=== PATIENT | male | born 1955 | race Caucasian/White ===

== ENCOUNTER 2020-06-09 07:41 | Outpatient (CLI) | payer BC ==
--- NOTE | 2020-06-09 08:19 | ULT ---
GALLBLADDER ULTRASOUND: HISTORY:Transaminitis FINDINGS: The liver demonstrates increased echogenicity without focal mass or intrahepatic biliary ductal dilat ation. No gallstones, gallbladder wall thickening or pericholecystic fluid are seen. The right kidney and visualized portions of the pancreas are normal. The common duct [id number] in diameter. No free fluid is seen in the Aytes's pouch. IMPRESSION: 1. Fatty liver 2. No evidence of cholelithiasis
== END 2020-06-09 07:42 | disposition home or self-care (01) ==
LOC: BICULT 07:41
PROVIDERS: ATTEND Internal Medicine
DX: R74.01 Elevation of levels of liver transaminase levels (principal); K76.0 Fatty (change of) liver, not elsewhere classified
CPT/HCPCS: 76705

== ENCOUNTER 2020-11-04 11:48 | Outpatient (CLI) | payer BC ==
--- NOTE | 2020-11-04 15:00 | PET ---
Nuclear medicine FDG PET/CT: (Positron emission tomography and computed tomography) DATE: 11/04/2020 HISTORY: 65-year-old male with pancreatic cancer and liver metastases. Initial staging. COMPARISON: none TECHNIQUE: IV injection of F-18 fluorodeoxyglucose (FDG) dose: 11.8 mCi. PET scan and attenuation correction CT performed from skull base to proximal thighs. FINDINGS: SUV (standard uptake values) numbers given are maximum SUVs. QCLR used. The mass at the tail of the pancreas is hypermetabolic. SUV 7.4. The left adrenal nodule is hypermetabolic, with SUV 3.0. Right retrocaval node posterior to right renal vein SUV 2.9. The other upper retroperitoneal nodes, including left anterior para-aortic nodes have SUVs of 1.9 and 2.3, below threshold. Of the several small liver lesions in the lateral periphery of the right lobe, the one with greatest uptake has SUV of 4.5. Multiple hypermetabolic foci in bilateral ribs : Of these, the greatest uptake is at the lateral aspect of the right sixth rib with SUV 6.8. T4 vertebral body SUV 4.2. T5 vertebral body and left pedicle SUV 8. Right side of L2 vertebral body SUV 3.8. Right ilium lateral to SI joint SUV 8.8. Left anterior iliac wing SUV 4.6. Left supra-acetabular ilium SUV 5.1. Right ischial tuberosity SUV 4.5. No evidence of metastases within the thoracic cavity, neck, or pelvic cavity. IMPRESSION: 1) hypermetabolic mass at pancreatic tail: Evidence for primary pancreatic cancer. 2) evidence for numerous skeletal metastases. 3) several hepatic metastases. 4) left adrenal metastasis. 5) upper retroperitoneal metastases.
== END 2020-11-04 11:49 | disposition home or self-care (01) ==
LOC: PET 11:48
PROVIDERS: ATTEND Internal Medicine Hematology & Oncology
DX: C25.0 Malignant neoplasm of head of pancreas (principal); C79.51 Secondary malignant neoplasm of bone; C78.7 Secondary malignant neoplasm of liver and intrahepatic bile duct; C78.6 Secondary malignant neoplasm of retroperitoneum and peritoneum; C79.72 Secondary malignant neoplasm of left adrenal gland
CPT/HCPCS: 78815; A9552

== ENCOUNTER 2020-11-06 08:46 | Day surgery (SDC) | payer BC ==
[2020-11-06 09:55] LABS: PTT 29.6 sec (22.9-36.1); Prothrombin Time 13.6 sec (12.0-14.7)
[2020-11-06 10:33] VITALS: BP 129/81; TEMP 98.3
== END 2020-11-06 12:15 | disposition home or self-care (01) ==
LOC: CT 08:46
PROVIDERS: ATTEND Internal Medicine Hematology & Oncology
PROC: 0QB23ZX Excision of Right Pelvic Bone, Percutaneous Approach, Diagnostic (ICD-10-PCS; principal; 2020-11-06)
DX: C25.0 Malignant neoplasm of head of pancreas (principal); C79.51 Secondary malignant neoplasm of bone; E11.9 Type 2 diabetes mellitus without complications; I10 Essential (primary) hypertension; I48.91 Unspecified atrial fibrillation; K21.9 Gastro-esophageal reflux disease without esophagitis; K59.00 Constipation, unspecified; E78.5 Hyperlipidemia, unspecified; L40.50 Arthropathic psoriasis, unspecified; Z79.82 Long term (current) use of aspirin; Z79.84 Long term (current) use of oral hypoglycemic drugs; Z79.899 Other long term (current) drug therapy; Z87.891 Personal history of nicotine dependence; Z88.1 Allergy status to other antibiotic agents
CPT/HCPCS: 20225; 77012; 85610; 85730; 88307; 88313; 88333; 88341; 88342

== ENCOUNTER 2020-11-17 13:11 | Inpatient (IN) | payer BC ==
[2020-11-17] MEDS ORDERED: Iopamidol-370 76% 500 ML 1 ML ONE (13:24)
[2020-11-17] MEDS ORDERED: Fentanyl 100 MCG/2 ML VIAL ONE ×3 (13:46→15:21)
[2020-11-17] MEDS ORDERED: Heparin 10,000 UNITS/ 10 ML VIAL ONE (14:33)
[2020-11-17] MEDS ORDERED: Heparin 25,000 units/D5W 500 ML ONE (14:33)
[2020-11-17 14:46] LABS: #Eosinphils 0.1 thou/uL (0.0-0.7); #Lymphocytes 0.9 thou/uL (1.20-3.40); #Monocytes 0.8 thou/uL (0.11-0.59); #Neutrophils 11.3 thou/uL (1.40-6.50); %Basophils 0.2 % (0.0-1.0); %Eosinophils 0.7 % (0.0-10.0); %Lymphocytes 6.9 % (21.0-51.0); %Monocytes 6.1 % (0.0-10.0); Hemoglobin 13.4 g/dL (14.0-18.0); Mean Corpuscular HGB CONC 32.4 g/dL (32.0-36.0); Mean Corpuscular Hemoglobin 29.2 pg (27.0-31.0); Mean Corpuscular Volume 90.2 fL (78.0-98.0); Mean Platelet Volume 6.8 fL (7.4-10.4); Platelet Count 181 thou/uL (130-400); RBC Distribution Width 12.2 % (11.5-14.5); Red Blood Cell (RBC) Count 4.58 mill/uL (4.70-6.10); White Blood Cell (WBC) Count 13.2 thou/uL (4.8-10.8)
[2020-11-17 15:06] LABS: ALT (SGPT) 42 U/L (8-55); AST (SGOT) 57 U/L (5-34); Albumin 3.6 g/dL (3.4-4.8); Alkaline Phosphatase 103 U/L (40-110); Anion Gap 20 mmol/L (10-20); BUN (Urea Nitrogen) 13 mg/dL (8.4-25.7); Bilirubin, Total 0.7 mg/dL (0.2-1.2); Calc. Creatinine Clearance 0 mL/min (70-130); Carbon Dioxide 21 mmol/L (23-31); Chloride 95 mmol/L (98-107); Globulin 3.6 g/dL (2.4-3.5); Glucose 231 mg/dL (80-115); Potassium 4.5 mmol/L (3.5-5.1); Protein, Total 7.2 g/dL (5.8-8.1); Sodium 131 mmol/L (136-145)
[2020-11-17 15:35] LABS: INR-International Normal Ratio 1.4; Prothrombin Time 17.7 sec (12.0-14.7)
[2020-11-17 15:42] LABS: PTT 242.7 sec (22.9-36.1)
[2020-11-17 15:52] LABS: CKMB 0.7 ng/mL (0-6.6)
[2020-11-17] MEDS ORDERED: Electrolyte Replacement Protocol FS SCH (15:58)
[2020-11-17] MEDS ORDERED: Heparin 10,000 UNITS/ 10 ML VIAL SLOW IVP SCH (16:00)
[2020-11-17 18:12] LABS: Troponin I 0.033 ng/mL (< 0.028)
[2020-11-17 18:22] LABS: SARS-CoV-2 NAA Rapid Test Not Detected (NotDetected)
[2020-11-17] MEDS ORDERED: Insulin Regular 300 UNITS/3 ML VIAL SC PRN (19:04)
[2020-11-17] MEDS ORDERED: Dextrose 5% in Water 1,000 ML IV PRN (19:04)
[2020-11-17] MEDS ORDERED: Dextrose 50% Abboject 50 ML SYRINGE SLOW IVP PRN (19:04)
[2020-11-17] MEDS ORDERED: Calcium Carbonate 500 MG ChewTAB PO PRN (19:06)
[2020-11-17] MEDS ORDERED: Dronedarone HCl 400 MG TAB PO SCH (19:15)
[2020-11-17] MEDS ORDERED: Magnesium 2 GM/50 ML 2 GM in Premix Bag 1 BAG IVPB SCH (19:15)
[2020-11-17] MEDS: Morphine 2 MG/ML VIAL SLOW IVP PRN (19:55)
[2020-11-17] MEDS: Morphine ER 15 MG TAB PO SCH (19:59)
[2020-11-17] MEDS: Sodium Chloride 0.9% 1,000 ML IV SCH (20:30)
[2020-11-17] MEDS: HYDROcodone/Acetaminophen 10/325 mg Tablet PO PRN (22:14)
[2020-11-17] MEDS: Senokot S 8.6-50 MG TAB PO SCH (22:21)
[2020-11-17] MEDS: Metoprolol Tartrate 25 MG TAB PO SCH (22:23)
[2020-11-18] MEDS: HYDROcodone/Acetaminophen 10/325 mg Tablet PO PRN ×4 (02:19→22:18)
[2020-11-18] MEDS: Heparin 25,000 units/D5W 500 ML IVPB SCH ×2 (02:21→15:24)
[2020-11-18] MEDS: Sodium Chloride 0.9% 1,000 ML IV SCH ×3 (02:22→20:35)
[2020-11-18 03:55] LABS: #Eosinphils 0.1 thou/uL (0.0-0.7); #Lymphocytes 1.5 thou/uL (1.20-3.40); #Monocytes 0.9 thou/uL (0.11-0.59); %Basophils 0.3 % (0.0-1.0); %Lymphocytes 13.3 % (21.0-51.0); %Monocytes 7.7 % (0.0-10.0); %Neutrophils 77.7 % (42.0-75.0); Hemoglobin 12.3 g/dL (14.0-18.0); Mean Corpuscular Hemoglobin 30.4 pg (27.0-31.0); Mean Corpuscular Volume 89.5 fL (78.0-98.0); Platelet Count 160 thou/uL (130-400); Red Blood Cell (RBC) Count 4.06 mill/uL (4.70-6.10); White Blood Cell (WBC) Count 11.6 thou/uL (4.8-10.8)
[2020-11-18 04:17] LABS: Anion Gap 15 mmol/L (10-20); BUN (Urea Nitrogen) 8 mg/dL (8.4-25.7); Calc. Creatinine Clearance 160 mL/min (70-130); Calcium 8.6 mg/dL (7.8-10.44); Carbon Dioxide 23 mmol/L (23-31); Chloride 99 mmol/L (98-107); Glucose 213 mg/dL (80-115); Potassium 3.7 mmol/L (3.5-5.1); Sodium 133 mmol/L (136-145)
[2020-11-18] MEDS: Insulin Regular 300 UNITS/3 ML VIAL SC PRN ×4 (04:35→22:18)
[2020-11-18] MEDS: Dronedarone HCl 400 MG TAB PO SCH ×2 (07:58→16:36)
[2020-11-18] MEDS: Senokot S 8.6-50 MG TAB PO SCH ×2 (08:34→20:25)
[2020-11-18] MEDS: Morphine ER 15 MG TAB PO SCH ×2 (08:34→20:25)
[2020-11-18] MEDS: Metoprolol Tartrate 25 MG TAB PO SCH ×2 (08:35→20:27)
[2020-11-18] MEDS: Pantoprazole 40 MG VIAL IVP SCH (08:35)
[2020-11-18] MEDS: Aspirin 81 mg Enteric Coated Tablet PO SCH (08:35)
[2020-11-18] MEDS ORDERED: FLU VACC QS2020-21(6MOS UP)/PF 60 MCG/0.5 ML SYRINGE IM ONE (09:00)
[2020-11-18] MEDS ORDERED: Prevnar 13-Val Conj/PF 0.5 ML SYRINGE IM ONE (09:00)
[2020-11-18] MEDS: Morphine 2 MG/ML VIAL SLOW IVP PRN (10:11)
[2020-11-18] MEDS ORDERED: Polyethylene Glycol 3350 17 GM Packet PO PRN (11:04)
[2020-11-18] MEDS: fentaNYL 50 mcg/hour Patch TD SCH (11:39)
[2020-11-18] MEDS: Warfarin Sodium 5 MG TAB PO SCH (16:36)
[2020-11-19] MEDS: HYDROcodone/Acetaminophen 10/325 mg Tablet PO PRN ×2 (02:41→06:33)
[2020-11-19] MEDS: Heparin 25,000 units/D5W 500 ML IVPB SCH ×2 (02:58→14:31)
[2020-11-19 03:57] LABS: #Eosinphils 0.2 thou/uL (0.0-0.7); #Lymphocytes 1.2 thou/uL (1.20-3.40); #Monocytes 0.9 thou/uL (0.11-0.59); #Neutrophils 7.5 thou/uL (1.40-6.50); %Basophils 0.3 % (0.0-1.0); %Eosinophils 2.2 % (0.0-10.0); %Lymphocytes 12.2 % (21.0-51.0); %Monocytes 8.9 % (0.0-10.0); %Neutrophils 76.5 % (42.0-75.0); Hemoglobin 12.3 g/dL (14.0-18.0); Mean Corpuscular HGB CONC 33.4 g/dL (32.0-36.0); Mean Corpuscular Hemoglobin 30.1 pg (27.0-31.0); Mean Corpuscular Volume 90.1 fL (78.0-98.0); Mean Platelet Volume 6.9 fL (7.4-10.4); Platelet Count 175 thou/uL (130-400); RBC Distribution Width 11.9 % (11.5-14.5); Red Blood Cell (RBC) Count 4.09 mill/uL (4.70-6.10); White Blood Cell (WBC) Count 9.8 thou/uL (4.8-10.8)
[2020-11-19 04:00] LABS: INR-International Normal Ratio 1.1; Prothrombin Time 14.8 sec (12.0-14.7)
[2020-11-19 04:01] LABS: PTT 67.9 sec (22.9-36.1)
[2020-11-19 04:19] LABS: Anion Gap 16 mmol/L (10-20); BUN (Urea Nitrogen) 7 mg/dL (8.4-25.7); Calc. Creatinine Clearance 155 mL/min (70-130); Calcium 8.5 mg/dL (7.8-10.44); Carbon Dioxide 20 mmol/L (23-31); Chloride 99 mmol/L (98-107); Glucose 191 mg/dL (80-115); Potassium 4.4 mmol/L (3.5-5.1); Sodium 131 mmol/L (136-145)
[2020-11-19 04:23] LABS: Troponin I 0.014 ng/mL (< 0.028)
[2020-11-19] MEDS: Insulin Regular 300 UNITS/3 ML VIAL SC PRN ×3 (06:41→15:52)
[2020-11-19] MEDS: Dronedarone HCl 400 MG TAB PO SCH ×2 (07:43→16:54)
[2020-11-19] MEDS: Rosuvastatin 10 MG TAB PO SCH (07:52)
[2020-11-19] MEDS: Metoprolol Tartrate 25 MG TAB PO SCH ×2 (07:52→21:50)
[2020-11-19] MEDS: Senokot S 8.6-50 MG TAB PO SCH ×2 (07:52→21:49)
[2020-11-19] MEDS: Aspirin 81 mg Enteric Coated Tablet PO SCH (07:53)
[2020-11-19] MEDS: Pantoprazole 40 MG VIAL IVP SCH (07:53)
[2020-11-19] MEDS: Sodium Chloride 0.9% 1,000 ML IV SCH (07:55)
[2020-11-19] MEDS: Morphine ER 15 MG TAB PO SCH ×2 (08:29→22:08)
[2020-11-19] MEDS ORDERED: Morphine 2 MG/ML VIAL SLOW IVP PRN (09:21)
[2020-11-19] MEDS: metFORMIN 850 MG TAB PO SCH ×2 (14:32→21:44)
[2020-11-19] MEDS: Warfarin Sodium 5 MG TAB PO SCH (16:54)
[2020-11-19] MEDS ORDERED: Diltiazem 125 MG in Sodium Chloride 0.9% 100 ML IVPB SCH (18:00)
[2020-11-19] MEDS ORDERED: Digoxin 0.5 MG/2 ML AMP SLOW IVP SCH (18:00)
[2020-11-19] MEDS: Enoxaparin Sodium 100 MG/ML SYRINGE SC SCH (21:50)
[2020-11-20 04:02] LABS: #Basophils 0.1 thou/uL (0.0-0.2); #Eosinphils 0.2 thou/uL (0.0-0.7); #Lymphocytes 1.3 thou/uL (1.20-3.40); #Monocytes 0.9 thou/uL (0.11-0.59); #Neutrophils 7.9 thou/uL (1.40-6.50); %Basophils 0.5 % (0.0-1.0); %Eosinophils 2.2 % (0.0-10.0); %Lymphocytes 12.8 % (21.0-51.0); %Monocytes 8.6 % (0.0-10.0); %Neutrophils 75.8 % (42.0-75.0); Hemoglobin 12.9 g/dL (14.0-18.0); Mean Corpuscular HGB CONC 33.7 g/dL (32.0-36.0); Mean Corpuscular Hemoglobin 30.4 pg (27.0-31.0); Mean Platelet Volume 6.9 fL (7.4-10.4); Platelet Count 161 thou/uL (130-400); Red Blood Cell (RBC) Count 4.25 mill/uL (4.70-6.10); White Blood Cell (WBC) Count 10.4 thou/uL (4.8-10.8)
[2020-11-20 04:33] LABS: Anion Gap 16 mmol/L (10-20); BUN (Urea Nitrogen) 7 mg/dL (8.4-25.7); Calc. Creatinine Clearance 173 mL/min (70-130); Calcium 8.9 mg/dL (7.8-10.44); Carbon Dioxide 18 mmol/L (23-31); Chloride 99 mmol/L (98-107); Glucose 157 mg/dL (80-115); Potassium 4.2 mmol/L (3.5-5.1); Sodium 129 mmol/L (136-145)
[2020-11-20] MEDS: Dronedarone HCl 400 MG TAB PO SCH ×2 (07:47→17:19)
[2020-11-20 08:17] LABS: INR-International Normal Ratio 1.2; Prothrombin Time 15.6 sec (12.0-14.7)
[2020-11-20] MEDS: Rosuvastatin 10 MG TAB PO SCH (08:32)
[2020-11-20] MEDS: Senokot S 8.6-50 MG TAB PO SCH ×2 (08:32→20:22)
[2020-11-20] MEDS: Aspirin 81 mg Enteric Coated Tablet PO SCH (08:32)
[2020-11-20] MEDS: Morphine ER 15 MG TAB PO SCH ×2 (08:32→20:23)
[2020-11-20] MEDS: Enoxaparin Sodium 100 MG/ML SYRINGE SC SCH ×2 (08:33→20:21)
[2020-11-20] MEDS: Metoprolol Tartrate 25 MG TAB PO SCH ×2 (08:33→20:22)
[2020-11-20] MEDS: metFORMIN 850 MG TAB PO SCH ×3 (08:34→20:22)
[2020-11-20] MEDS: Insulin Regular 300 UNITS/3 ML VIAL SC PRN (11:51)
[2020-11-20] MEDS: HYDROcodone/Acetaminophen 10/325 mg Tablet PO PRN ×2 (15:22→22:11)
[2020-11-20] MEDS: Warfarin Sodium 5 MG TAB PO SCH (17:19)
[2020-11-21 04:52] LABS: #Basophils 0.1 thou/uL (0.0-0.2); #Eosinphils 0.2 thou/uL (0.0-0.7); #Lymphocytes 1.1 thou/uL (1.20-3.40); #Monocytes 0.8 thou/uL (0.11-0.59); #Neutrophils 6.2 thou/uL (1.40-6.50); %Basophils 0.6 % (0.0-1.0); %Eosinophils 2.8 % (0.0-10.0); %Lymphocytes 13.5 % (21.0-51.0); Mean Corpuscular HGB CONC 32.6 g/dL (32.0-36.0); Mean Corpuscular Volume 88.8 fL (78.0-98.0); Mean Platelet Volume 6.7 fL (7.4-10.4); Platelet Count 203 thou/uL (130-400); Red Blood Cell (RBC) Count 4.15 mill/uL (4.70-6.10); White Blood Cell (WBC) Count 8.4 thou/uL (4.8-10.8)
[2020-11-21 04:54] LABS: INR-International Normal Ratio 1.3; Prothrombin Time 16.6 sec (12.0-14.7)
[2020-11-21 05:13] LABS: Anion Gap 14 mmol/L (10-20); BUN (Urea Nitrogen) 10 mg/dL (8.4-25.7); Calc. Creatinine Clearance 163 mL/min (70-130); Calcium 9.2 mg/dL (7.8-10.44); Carbon Dioxide 26 mmol/L (23-31); Chloride 96 mmol/L (98-107); Glucose 152 mg/dL (80-115); Potassium 4.1 mmol/L (3.5-5.1); Sodium 132 mmol/L (136-145)
[2020-11-21] MEDS ORDERED: Warfarin Sodium 5 MG TAB PO SCH (09:16)
[2020-11-21] MEDS: Morphine ER 15 MG TAB PO SCH ×2 (09:46→20:50)
[2020-11-21] MEDS: Enoxaparin Sodium 100 MG/ML SYRINGE SC SCH ×2 (09:46→20:50)
[2020-11-21] MEDS: Senokot S 8.6-50 MG TAB PO SCH ×2 (09:47→20:51)
[2020-11-21] MEDS: metFORMIN 850 MG TAB PO SCH ×3 (09:47→20:51)
[2020-11-21] MEDS: Dronedarone HCl 400 MG TAB PO SCH ×2 (09:47→17:39)
[2020-11-21] MEDS: Aspirin 81 mg Enteric Coated Tablet PO SCH (09:48)
[2020-11-21] MEDS: Metoprolol Tartrate 25 MG TAB PO SCH ×2 (09:48→20:51)
[2020-11-21] MEDS: Rosuvastatin 10 MG TAB PO SCH (09:51)
[2020-11-21] MEDS ORDERED: Zolpidem Tartrate 5 MG TAB PO PRN (09:58)
[2020-11-21] MEDS: fentaNYL 50 mcg/hour Patch TD SCH (11:51)
[2020-11-21] MEDS: HYDROcodone/Acetaminophen 10/325 mg Tablet PO PRN ×2 (13:41→18:03)
[2020-11-21] MEDS ORDERED: Warfarin Sodium 7.5 MG TAB PO SCH (17:00)
[2020-11-22] MEDS: HYDROcodone/Acetaminophen 10/325 mg Tablet PO PRN ×2 (01:31→10:51)
[2020-11-22 05:17] LABS: #Basophils 0.1 thou/uL (0.0-0.2); #Eosinphils 0.2 thou/uL (0.0-0.7); #Lymphocytes 1.1 thou/uL (1.20-3.40); #Monocytes 0.7 thou/uL (0.11-0.59); #Neutrophils 6.1 thou/uL (1.40-6.50); %Basophils 0.7 % (0.0-1.0); %Eosinophils 2.5 % (0.0-10.0); %Lymphocytes 13.2 % (21.0-51.0); %Monocytes 8.7 % (0.0-10.0); %Neutrophils 74.9 % (42.0-75.0); Hemoglobin 11.7 g/dL (14.0-18.0); Mean Corpuscular HGB CONC 33.6 g/dL (32.0-36.0); Mean Corpuscular Hemoglobin 29.8 pg (27.0-31.0); Mean Corpuscular Volume 88.6 fL (78.0-98.0); Mean Platelet Volume 7.1 fL (7.4-10.4); Platelet Count 214 thou/uL (130-400); Red Blood Cell (RBC) Count 3.92 mill/uL (4.70-6.10); White Blood Cell (WBC) Count 8.2 thou/uL (4.8-10.8)
[2020-11-22 05:21] LABS: INR-International Normal Ratio 1.5; Prothrombin Time 18.8 sec (12.0-14.7)
[2020-11-22 05:39] LABS: Anion Gap 15 mmol/L (10-20); BUN (Urea Nitrogen) 8 mg/dL (8.4-25.7); Calc. Creatinine Clearance 161 mL/min (70-130); Calcium 9.1 mg/dL (7.8-10.44); Carbon Dioxide 24 mmol/L (23-31); Chloride 95 mmol/L (98-107); Glucose 146 mg/dL (80-115); Sodium 130 mmol/L (136-145)
[2020-11-22] MEDS: Metoprolol Tartrate 25 MG TAB PO SCH ×2 (09:15→21:02)
[2020-11-22] MEDS: Enoxaparin Sodium 100 MG/ML SYRINGE SC SCH (09:15)
[2020-11-22] MEDS: Aspirin 81 mg Enteric Coated Tablet PO SCH (09:15)
[2020-11-22] MEDS: metFORMIN 850 MG TAB PO SCH ×3 (09:15→21:04)
[2020-11-22] MEDS: Dronedarone HCl 400 MG TAB PO SCH ×2 (09:15→17:14)
[2020-11-22] MEDS: Morphine ER 15 MG TAB PO SCH ×2 (09:16→21:03)
[2020-11-22] MEDS: Rosuvastatin 10 MG TAB PO SCH (09:18)
[2020-11-22] MEDS: Senokot S 8.6-50 MG TAB PO SCH ×2 (09:18→21:02)
[2020-11-22 10:23] VITALS: BMI 29.8
[2020-11-22] MEDS: Insulin Regular 300 UNITS/3 ML VIAL SC PRN (10:52)
[2020-11-22] MEDS: Apixaban 5 MG TAB PO SCH (21:04)
[2020-11-23 04:57] LABS: #Eosinphils 0.2 thou/uL (0.0-0.7); #Lymphocytes 0.9 thou/uL (1.20-3.40); #Monocytes 0.9 thou/uL (0.11-0.59); #Neutrophils 7.6 thou/uL (1.40-6.50); %Basophils 0.2 % (0.0-1.0); %Eosinophils 2.5 % (0.0-10.0); %Lymphocytes 9.6 % (21.0-51.0); %Monocytes 9.4 % (0.0-10.0); %Neutrophils 78.3 % (42.0-75.0); Mean Corpuscular HGB CONC 34.3 g/dL (32.0-36.0); Mean Corpuscular Hemoglobin 30.6 pg (27.0-31.0); Mean Corpuscular Volume 89.1 fL (78.0-98.0); Mean Platelet Volume 6.9 fL (7.4-10.4); Platelet Count 232 thou/uL (130-400); RBC Distribution Width 11.9 % (11.5-14.5); Red Blood Cell (RBC) Count 3.91 mill/uL (4.70-6.10); White Blood Cell (WBC) Count 9.7 thou/uL (4.8-10.8)
[2020-11-23 05:23] LABS: Anion Gap 16 mmol/L (10-20); BUN (Urea Nitrogen) 8 mg/dL (8.4-25.7); Calc. Creatinine Clearance 153 mL/min (70-130); Carbon Dioxide 25 mmol/L (23-31); Chloride 95 mmol/L (98-107); Glucose 163 mg/dL (80-115); Potassium 3.5 mmol/L (3.5-5.1); Sodium 132 mmol/L (136-145)
[2020-11-23] MEDS: HYDROcodone/Acetaminophen 10/325 mg Tablet PO PRN ×2 (05:45→17:25)
[2020-11-23] MEDS: Insulin Regular 300 UNITS/3 ML VIAL SC PRN ×3 (05:54→17:54)
[2020-11-23] MEDS ORDERED: Potassium Chloride 20 MEQ TAB PO SCH (06:30)
[2020-11-23] MEDS: Apixaban 5 MG TAB PO SCH ×2 (08:03→21:08)
[2020-11-23] MEDS: Dronedarone HCl 400 MG TAB PO SCH ×2 (08:03→16:35)
[2020-11-23] MEDS: metFORMIN 850 MG TAB PO SCH ×3 (08:04→21:09)
[2020-11-23] MEDS: Metoprolol Tartrate 25 MG TAB PO SCH ×2 (08:04→21:08)
[2020-11-23] MEDS: Aspirin 81 mg Enteric Coated Tablet PO SCH (08:04)
[2020-11-23] MEDS: Rosuvastatin 10 MG TAB PO SCH (08:05)
[2020-11-23] MEDS: Morphine ER 15 MG TAB PO SCH ×2 (08:05→21:10)
[2020-11-23] MEDS: Senokot S 8.6-50 MG TAB PO SCH ×2 (08:06→21:09)
[2020-11-23] MEDS ORDERED: Melatonin 3 MG TAB PO PRN (11:42)
[2020-11-24] MEDS: HYDROcodone/Acetaminophen 10/325 mg Tablet PO PRN ×4 (00:37→17:32)
[2020-11-24 04:36] LABS: #Basophils 0.1 thou/uL (0.0-0.2); #Eosinphils 0.3 thou/uL (0.0-0.7); #Lymphocytes 1.1 thou/uL (1.20-3.40); #Monocytes 0.9 thou/uL (0.11-0.59); #Neutrophils 7.1 thou/uL (1.40-6.50); %Basophils 0.7 % (0.0-1.0); %Eosinophils 2.7 % (0.0-10.0); %Lymphocytes 11.5 % (21.0-51.0); %Monocytes 9.7 % (0.0-10.0); %Neutrophils 75.4 % (42.0-75.0); Hemoglobin 11.9 g/dL (14.0-18.0); Mean Corpuscular HGB CONC 32.5 g/dL (32.0-36.0); Mean Corpuscular Hemoglobin 28.7 pg (27.0-31.0); Mean Corpuscular Volume 88.5 fL (78.0-98.0); Mean Platelet Volume 6.6 fL (7.4-10.4); Platelet Count 223 thou/uL (130-400); RBC Distribution Width 12.1 % (11.5-14.5); Red Blood Cell (RBC) Count 4.16 mill/uL (4.70-6.10); White Blood Cell (WBC) Count 9.4 thou/uL (4.8-10.8)
[2020-11-24 05:02] LABS: Anion Gap 13 mmol/L (10-20); BUN (Urea Nitrogen) 8 mg/dL (8.4-25.7); Calc. Creatinine Clearance 160 mL/min (70-130); Carbon Dioxide 26 mmol/L (23-31); Chloride 96 mmol/L (98-107); Glucose 159 mg/dL (80-115); Potassium 3.6 mmol/L (3.5-5.1); Sodium 131 mmol/L (136-145)
[2020-11-24] MEDS: Apixaban 5 MG TAB PO SCH ×2 (07:57→21:29)
[2020-11-24] MEDS: Metoprolol Tartrate 25 MG TAB PO SCH ×2 (07:57→21:29)
[2020-11-24] MEDS: Dronedarone HCl 400 MG TAB PO SCH ×2 (07:57→16:24)
[2020-11-24] MEDS: Aspirin 81 mg Enteric Coated Tablet PO SCH (07:57)
[2020-11-24] MEDS: metFORMIN 850 MG TAB PO SCH ×3 (07:57→21:29)
[2020-11-24] MEDS: Rosuvastatin 10 MG TAB PO SCH (07:58)
[2020-11-24] MEDS: Morphine ER 15 MG TAB PO SCH ×2 (07:58→21:29)
[2020-11-24] MEDS: Senokot S 8.6-50 MG TAB PO SCH ×2 (07:59→21:29)
[2020-11-24] MEDS: Insulin Regular 300 UNITS/3 ML VIAL SC PRN (10:48)
[2020-11-24] MEDS: fentaNYL 50 mcg/hour Patch TD SCH (15:39)
[2020-11-24] MEDS ORDERED: Melatonin 3 MG TAB PO PRN (15:43)
[2020-11-25] MEDS: HYDROcodone/Acetaminophen 10/325 mg Tablet PO PRN ×2 (02:22→10:28)
[2020-11-25 04:48] LABS: #Eosinphils 0.3 thou/uL (0.0-0.7); #Monocytes 1.1 thou/uL (0.11-0.59); #Neutrophils 8.2 thou/uL (1.40-6.50); %Basophils 0.4 % (0.0-1.0); %Eosinophils 2.7 % (0.0-10.0); %Lymphocytes 9.4 % (21.0-51.0); %Monocytes 10.6 % (0.0-10.0); %Neutrophils 76.9 % (42.0-75.0); Hemoglobin 12.1 g/dL (14.0-18.0); Mean Corpuscular HGB CONC 32.5 g/dL (32.0-36.0); Mean Corpuscular Hemoglobin 28.9 pg (27.0-31.0); Mean Corpuscular Volume 88.9 fL (78.0-98.0); Mean Platelet Volume 6.8 fL (7.4-10.4); Platelet Count 220 thou/uL (130-400); RBC Distribution Width 12.4 % (11.5-14.5); Red Blood Cell (RBC) Count 4.19 mill/uL (4.70-6.10); White Blood Cell (WBC) Count 10.6 thou/uL (4.8-10.8)
[2020-11-25 05:09] LABS: Anion Gap 15 mmol/L (10-20); BUN (Urea Nitrogen) 9 mg/dL (8.4-25.7); Calc. Creatinine Clearance 145 mL/min (70-130); Calcium 8.9 mg/dL (7.8-10.44); Carbon Dioxide 25 mmol/L (23-31); Chloride 94 mmol/L (98-107); Glucose 176 mg/dL (80-115); Potassium 4.1 mmol/L (3.5-5.1); Sodium 130 mmol/L (136-145)
[2020-11-25] MEDS: Insulin Regular 300 UNITS/3 ML VIAL SC PRN ×2 (06:20→12:27)
[2020-11-25] MEDS: Morphine ER 15 MG TAB PO SCH (08:31)
[2020-11-25] MEDS: Apixaban 5 MG TAB PO SCH (08:31)
[2020-11-25] MEDS: metFORMIN 850 MG TAB PO SCH (08:31)
[2020-11-25] MEDS: Rosuvastatin 10 MG TAB PO SCH (08:32)
[2020-11-25] MEDS: Senokot S 8.6-50 MG TAB PO SCH (08:32)
[2020-11-25] MEDS: Metoprolol Tartrate 25 MG TAB PO SCH (08:32)
[2020-11-25] MEDS: Dronedarone HCl 400 MG TAB PO SCH (08:32)
[2020-11-25] MEDS: Aspirin 81 mg Enteric Coated Tablet PO SCH (08:32)
[2020-11-25 13:49] VITALS: BP 130/73; TEMP 98
== END 2020-11-25 14:45 | disposition hospice, home (50) | DRG 175 ==
LOC: ERS 13:11 → CCU 15:24 → 2NO 11-20 15:03
PROVIDERS: ADMIT Internal Medicine; ATTEND Internal Medicine
PROC: 5A09357 Assistance with Respiratory Ventilation, Less than 24 Consecutive Hours, Continuous Positive Airway Pressure (ICD-10-PCS; principal; 2020-11-18)
DX: I26.02 Saddle embolus of pulmonary artery with acute cor pulmonale (principal); J96.01 Acute respiratory failure with hypoxia; E87.1 Hypo-osmolality and hyponatremia; C25.9 Malignant neoplasm of pancreas, unspecified; C78.7 Secondary malignant neoplasm of liver and intrahepatic bile duct; C79.51 Secondary malignant neoplasm of bone; I48.92 Unspecified atrial flutter; Z20.822 Contact with and (suspected) exposure to COVID-19; E11.9 Type 2 diabetes mellitus without complications; I48.0 Paroxysmal atrial fibrillation; L40.50 Arthropathic psoriasis, unspecified; E78.5 Hyperlipidemia, unspecified; J30.9 Allergic rhinitis, unspecified; G47.33 Obstructive sleep apnea (adult) (pediatric); G89.3 Neoplasm related pain (acute) (chronic); I25.10 Atherosclerotic heart disease of native coronary artery without angina pectoris; Z96.651 Presence of right artificial knee joint; Z28.21 Immunization not carried out because of patient refusal; Z95.5 Presence of coronary angioplasty implant and graft; Z87.891 Personal history of nicotine dependence; Z88.1 Allergy status to other antibiotic agents; Z79.899 Other long term (current) drug therapy; Z79.82 Long term (current) use of aspirin; Z79.84 Long term (current) use of oral hypoglycemic drugs; Z82.49 Family history of ischemic heart disease and other diseases of the circulatory system; Z83.3 Family history of diabetes mellitus; Z80.3 Family history of malignant neoplasm of breast
CPT/HCPCS: 36415; 36416; 71275; 74177; 80048; 80053; 82553; 83735; 83880; 84443; 84484; 85025; 85379; 85610; 85730; 86301; 93005; 93306; 96365; 96366; 96374; 96375; 96376; C9113; J1160; J1644; J1650; J1815; J2270; J3010; J3475; J3490; Q9967; U0002